=== PATIENT | female | born 1975 ===

== ENCOUNTER 2018-05-07 21:55 | Emergency (ER) | payer OTHER ==
[2018-05-07 21:55] VITALS: BMI 38.9
[2018-05-07] MEDS ORDERED: Sodium Chloride 0.9% 1,000 ML IV STA (22:59)
[2018-05-07 23:27] LABS: BASO # 0.04 K/mm3 (0.0-2.0); BASO % 0.4 % (0.0-3.0); EOS # 0.1 (0.0-0.7); EOS % 0.6 % (1.5-5.0); HEMOGLOBIN 12.7 g/dL (12.0-16.0); LYMPH # 2.1 (1.2-3.4); LYMPH % 22.8 % (22.0-35.0); MEAN CELL VOLUME 89.3 fl (80.0-105.0); MEAN CORPUSCULAR HEMOGLOBIN 30.1 pg (25.0-35.0); MEAN CORPUSCULAR HGB CONC 33.7 g/dl (31.0-37.0); MEAN PLATELET VOLUME 11.7 fl (7.0-11.0); MONO # 0.6 (0.1-0.6); MONO % 6.4 % (1.0-6.0); RBC 4.22 10^6/uL (3.5-6.1); RED CELL DISTRIBUTION WIDTH 14.2 % (11.5-14.5); WHITE BLOOD COUNT 9.3 10^3/uL (4.5-11.0)
[2018-05-07 23:34] LABS: ALB/GLOB RATIO 1.2 (1.1-1.8); ALT/SGPT 11 U/L (7-56); AST/SGOT 17 U/L (14-36); BLOOD UREA NITROGEN 16 mg/dL (7-21); GFR NON-AFRICAN AMERICAN > 60
--- NOTE | 2018-05-07 23:37 | ED PDOC ---
Arrival/HPI - General Chief Complaint: Dizziness/Lightheaded Time Seen by Provider: 05/07/18 22:40 Historian: Patient - History of Present Illness Narrative History of Present Illness (Text): 05/07/18 23:37 A 42 year old female presents to the emergency department complaining of nausea and dizziness. Patient reports she had [employer] today, and then took a nap. Later on, when she was waken up by her , she began suddenly experiencing nausea and dizziness. She describes dizziness as "room-spinning" sensation, worsens with standing or moving her head. States she also vomited at home. Patient denies any other complaints at this time. Past Medical History - Provider Review Nursing Documentation Reviewed: Yes - Musculoskeletal/Rheumatological Hx Falls: No - Psychiatric Hx Substance Use: No - Surgical History Hx Appendectomy: Yes (2010) Hx Cholecystectomy: Yes (2010) Hx Gastric Bypass Surgery: Yes (2010) Family/Social History - Physician Review Nursing Documentation Reviewed: Yes Family/Social History: No Known Family HX Smoking Status: Never Smoked Hx Alcohol Use: Yes Hx Substance Use: No Allergies/Home Meds Allergies/Adverse Reactions: Allergies almond Allergy (Verified 04/19/16 21:57) ANAPHYLAXIS peach Allergy (Verified 04/19/16 21:57) ANAPHYLAXIS Penicillins Allergy (Verified 04/19/16 21:57) ANAPHYLAXIS Review of Systems - Physician Review All systems were reviewed & negative as marked: Yes - Review of Systems Constitutional: absent: Fevers Gastrointestinal: Abdominal Pain, Vomiting Neurological: Dizziness Physical Exam Vital Signs Reviewed: Yes Vital Signs Temp Pulse Resp BP Pulse Ox 05/07/18 22:14 97.4 F L 68 18 118/60 97 Temperature: Afebrile Blood Pressure: Normal Pulse: Regular Respiratory Rate: Normal Appearance: Positive for: Uncomfortable Pain Distress: Mild Mental Status: Positive for: Alert and Oriented X 3 - Systems Exam Head: Present: Atraumatic, Normocephalic Pupils: Present: PERRL Extroacular Muscles: Present: EOMI, Other (horizontal nystagmus) Conjunctiva: Present: Normal Mouth: Present: Moist Mucous Membranes Neck: Present: Normal Range of Motion Respiratory/Chest: Present: Clear to Auscultation, Good Air Exchange. No: Respiratory Distress, Accessory Muscle Use Cardiovascular: Present: Regular Rate and Rhythm, Normal S1, S2. No: Murmurs Abdomen: No: Tenderness, Distention, Peritoneal Signs Back: Present: Normal Inspection Upper Extremity: Present: Normal Inspection. No: Cyanosis, Edema Lower Extremity: Present: Normal Inspection. No: Edema Neurological: Present: GCS=15, CN II-XII Intact, Speech Normal Skin: Present: Warm, Dry, Normal Color. No: Rashes Psychiatric: Present: Alert, Oriented x 3, Normal Insight, Normal Concentration Medical Decision Making ED Course and Treatment: 05/07/18 23:39 Impression: 42 year old female with nausea, dizziness, vomiting. Plan: -- Antivert -- Zofran -- IV Fluids -- Reassess and disposition Progress Notes: Patient given IV fluids, zofran ivp for nausea, as well as meclizine PO for vertigo. On re-eval patient reports feeling a little better, but is still vomiting. Reglan ivp given. On further re-eval patient appeared more comfortable. Vomiting has ceased. Patient states that she is not completely back to baseline, but feels better. HR and BP have been normal throughout ED course. Rx written for zofran ODT and for meclizine. Lab results discussed. Advised outpatient followup as needed. Return to the ED for any new or worsening symptoms. - Medication Orders Current Medication Orders: Sodium Chloride (Sodium Chloride 0.9%) 1,000 mls @ 999 mls/hr IV .Q1H1M STA Stop: 05/07/18 23:59 Last Admin: 05/07/18 23:16 Dose: 999 mls/hr eMAR Start Stop Document 05/07/18 23:16 EB (Rec: 05/07/18 23:17 [email or web address]) Intravenous Solution Start Date 05/07/18 Start Time 23:17 Discontinued Medications Meclizine HCl (Antivert) 25 mg PO STAT STA Stop: 05/07/18 23:00 Last Admin: 05/07/18 23:17 Dose: 25 mg Ondansetron HCl (Zofran Inj) 4 mg IVP STAT STA Stop: 05/07/18 23:00 Last Admin: 05/07/18 23:16 Dose: 4 mg IVP Administration Document 05/07/18 23:16 EB (Rec: 05/07/18 23:16 [email or web address]) Charges for Administration # of IVP Administrations 1 - Scribe Statement The provider has reviewed the documentation as recorded by the Joshua Noel Provider Scribe Attestation: All medical record entries made by the [employer] were at my direction and personally dictated by me. I have reviewed the chart and agree that the record accurately reflects my personal performance of the history, physical exam, medical decision making, and the department course for this patient. I have also personally directed, reviewed, and agree with the discharge instructions and disposition. Disposition/Present on Arrival - Present on Arrival Any Indicators Present on Arrival: No History of DVT/PE: No History of Uncontrolled Diabetes: No Urinary Catheter: No History of Decub. Ulcer: No History Surgical Site Infection Following: None - Disposition Have Diagnosis and Disposition been Completed?: Yes Diagnosis: Nausea & vomiting, Vertigo Disposition: HOME/ ROUTINE Disposition Time: 02:40 Condition: STABLE Discharge Instructions (ExitCare): Vertigo (a Type of Dizziness) (DC), Nausea and Vomiting, Adult Additional Instructions: GEORGIE LINDSEY, thank you for letting us take care of you today. Your provider was Martha Glynn MD and you were treated for VOMITING. The emergency medical care you received today was directed at your acute symptoms. If you were prescribed any medication, please fill it and take as directed. It may take several days for your symptoms to resolve. Return to the Emergency Department if your symptoms worsen, do not improve, or if you have any other problems. Please contact your doctor or call one of the physicians/clinics you have been referred to that are listed on the Patient Visit Information form that is included in your discharge packet. Bring any paperwork you were given at discharge with you along with any medications you are taking to your follow up visit. Our treatment cannot replace ongoing medical care by a primary care provider outside of the emergency department. Thank you for allowing the [facility] team to be part of your care today. If you had an X-Ray or CT scan: A Radiologist will review the ED reading if any change in treatment is needed we will contact you. If you had a blood, urine, or wound culture: It will take several days for the results, if any change in treatment is needed we will contact you. If you had an STI test: It will take 48 hours for the results. Please call after 1 week if you have not heard back. Prescriptions: Meclizine [Meclizine*] 25 mg PO Q6 PRN #14 tab PRN Reason: Dizziness Metoclopramide [Reglan] 10 mg PO Q8H PRN #14 tab PRN Reason: Nausea/Vomiting Forms: [employer] ([employer])
[2018-05-08 00:14] VITALS: O2SAT 100
[2018-05-08 02:30] VITALS: BP 117/69; PULSE 72; RESP 21
[2018-05-08 02:41] VITALS: TEMP 98
== END 2018-05-08 02:40 | disposition home or self-care (01) ==
LOC: EDBD → ED 21:55
DX: R42 Dizziness and giddiness (principal); R11.2 Nausea with vomiting, unspecified; Z90.49 Acquired absence of other specified parts of digestive tract; Z98.84 Bariatric surgery status
CPT/HCPCS: 80053; 83735; 84100; 85025; 96374; 96375; 99285; J1885; J2405; J2765; J7030